=== PATIENT | male | born 1980 | race Caucasian/White ===

== ENCOUNTER 2017-11-04 17:29 | Observation (INO) ==
--- NOTE | 2017-11-04 17:46 | Emergency Department Note ---
Disposition Clinical Impression: Chest pain Qualifiers: Chest pain type: unspecified Qualified Code(s): R07.9 - Chest pain, unspecified Disposition: Admitted As Inpatient Condition: Undetermined Referrals: NONE,PCP [Primary Care Provider] - Forms: ED Satisfaction Letter Time of Disposition: 19:40 Chest Pain HPI - General Chief Complaint: ED Chest Pain Stated Complaint: CP Time Seen by Provider: 11/04/17 17:34 Source: patient Mode of arrival: ambulatory Limitations: no limitations Vital Signs Reviewed: Yes Nursing Notes Reviewed: Yes - History of Present Illness HPI Narrative: 37-year-old male arrives to the emergency department complaining of left-sided chest pain that radiates to his left shoulder and jaw. The patient states it was what he was out working in the [employer] Patient admits to some associated dyspnea as well as some nausea. Previous history of this once in the past but patient never received a stress test. No previous history of hypertension, hyperlipidemia and diabetes. The patient is a nonsmoker. The patient denies any other complaints at this time including hemoptysis, unilateral leg swelling , recent surgeries, recent immobilizations, history of DVT or PE. Severity scale (1-10): 3 - Related Data Home Medications Medication Instructions Recorded Confirmed No Known Home Drugs 11/03/15 11/04/17 Allergies Allergy/AdvReac Type Severity Reaction Status Date / Time No Known Allergies Allergy Verified 11/04/17 19:10 All systems ED: reviewed and negative except as stated. Constitutional: Denies: fever, chills, weakness ENT ED: Denies: congestion Cardiovascular: Reports: chest pain. Denies: dyspnea on exertion, edema, syncope Respiratory: Reports: dyspnea. Denies: cough Gastrointestinal: Reports: nausea, vomiting. Denies: abdominal pain, diarrhea, constipation, hematemesis, melena, hematochezia Genitourinary: Denies: urgency, dysuria Musculoskeletal: Denies: back pain Integumentary: Denies: rash Chest Pain PMH - Past Medical History Medical history: Reports: no medical history Surgical history: Reports: non-contributory Psychiatric history: Reports: no psych history - Social History Smoking Status: Never smoker Alcohol use: Reports: none Drug use: Reports: none Physical Exam - General Limitations: no limitations General appearance: alert, in no apparent distress - Head Head exam: atraumatic, normocephalic, normal inspection - Eye Eye exam: Present: normal appearance, PERRL, EOMI - ENT ENT exam: normal exam, normal oropharynx, mucous membranes moist - Neck Neck exam: Present: normal inspection, full ROM, trachea midline - Chest Chest inspection: Present: normal inspection, symmetric chest wall rise - Respiratory Respiratory exam: Present: normal lung sounds bilaterally - Cardiovascular Cardiovascular exam: Present: regular rate, normal rhythm, normal heart sounds - Abdominal Exam Abdominal exam: Present: soft, Non-Tender. Absent: tenderness, distention, guarding, rebound, rigidity - Extremities Exam Extremities exam: Present: normal inspection, full ROM. Absent: tenderness, pedal edema - Neurological Exam Neurological exam: Present: alert, oriented X3 - Skin Skin exam: Present: warm, dry, intact, normal color Course Vital Signs O2 Sat by Pulse Oximetry 98 11/04/17 17:37 Temperature 98.9 F 11/04/17 17:38 Pulse Rate 72 11/04/17 18:57 Respiratory Rate 14 11/04/17 18:57 Blood Pressure 127/91 11/04/17 18:57 O2 Sat by Pulse Oximetry 97 11/04/17 18:57 Oxygen Delivery Oxygen Delivery Room Air Chest Pain - MDM Narrative Medical decision making narrative: Patient's workup in the emergency department demonstrates no acute process. The patient's symptoms are very concerning for ACS. We will admit the patient to the hospital at this time as his chest pain was by nitroglycerin as well as the patient's concerning findings. The patient does have a low risk score when evaluating him using the heart score but given the patient's concerning findings the patient will be admitted at this time. Patient made aware and agrees to plan. The patient received nitroglycerin and aspirin in route to the hospital. No further questions or concerns noted by patient. Accepted by Dr. Fernandez. - Lab Data Lab results reviewed: Yes I reviewed the patient's lab results. Result diagrams: 11/04/17 17:44 11/04/17 17:44 Lab Results 11/04/17 11/04/17 11/04/17 Range/Units 17:44 17:44 17:44 WBC 9.3 (4.3-11.1) K/mcL RBC 5.10 (4.19-5.50) M/mcL Hgb 15.5 (12.9-16.9) g/dL Hct 44.9 (37.5-50.1) % MCV 88.0 (83.0-100.0) fL MCH 30.4 (28.0-33.3) pg MCHC 34.5 (31.6-35.5) g/dL RDW 12.4 (11.5-14.5) % Plt Count 250 (140-400) K/mcL MPV 9.7 (9.4-12.4) fL Immature Gran % 0.2 (0-4) % Seg Neutrophils % 56.5 % Lymphocytes % 32.3 % Monocytes % 8.6 % Eosinophils % 1.8 % Basophils % 0.6 % Neutrophils # 5.2 (1.6-8.9) K/mcL Lymphocytes # 3.0 (0.6-4.6) K/mcL Monocytes # 0.8 (0.0-1.3) K/mcL Eosinophils # 0.2 (0.0-0.6) K/mcL Basophils # 0.1 (0.0-0.2) K/mcL APTT 34.1 (26.0-36.0) Seconds Sodium 138 (136-145) mEq/L Potassium 4.9 (3.5-5.1) mEq/L Chloride 104 (98-107) mEq/L Carbon Dioxide 22 L (23-29) mEq/L BUN 21 H (6-20) mg/dL Creatinine 1.08 (0.70-1.30) mg/dL Est GFR ( Amer) > 60 (> 60) Est GFR (Non-Af Amer) > 60 (> 60) BUN/Creatinine Ratio 19 (6-26) Glucose 102 (70-105) mg/dL Calculated Osmolality 289 (280-300) Calcium 10.1 (8.6-10.3) mg/dL Troponin I < 0.03 (< 0.04) ng/mL - Radiology Data Radiology results reviewed: Yes I reviewed the patient's radiology results. Chest X-Ray 11/04/17 17:37 IMPRESSION: No acute cardiopulmonary findings. D/ / Rinku Dawson MD / Rinku Dawson MD Interpreting Provider: Rinku Dawson MD - EKG Data EKG attestation: Yes I reviewed and interpreted this EKG. EKG results narrative: Heart rate [address] depression noted, mild ST elevation noted in V1 that is identical to EKG of from 11/03/2015. J-point elevation noted in septolateral leads. Normal sinus rhythm.
[2017-11-04 18:09] LABS: Basophils # 0.1 K/mcL (0.0-0.2); Basophils % 0.6 %; Eosinophils # 0.2 K/mcL (0.0-0.6); Eosinophils % 1.8 %; Hematocrit 44.9 % (37.5-50.1); Hemoglobin 15.5 g/dL (12.9-16.9); Immature Granulocytes % 0.2 % (0-4); Lymphocytes % 32.3 %; Mean Corpuscular HGB Conc 34.5 g/dL (31.6-35.5); Mean Corpuscular Hemoglobin 30.4 pg (28.0-33.3); Mean Platelet Volume 9.7 fL (9.4-12.4); Monocytes # 0.8 K/mcL (0.0-1.3); Monocytes % 8.6 %; Neutrophils # 5.2 K/mcL (1.6-8.9); Platelet Count 250 K/mcL (140-400); Red Cell Distribution Width 12.4 % (11.5-14.5); Segmented Neutrophils % 56.5 %
--- NOTE | 2017-11-04 18:16 | Emergency Department Note ---
Disposition Clinical Impression: Chest pain Qualifiers: Chest pain type: unspecified Qualified Code(s): R07.9 - Chest pain, unspecified Disposition: Admitted As Inpatient Condition: Undetermined General Adult HPI - General Chief complaint: ED Chest Pain Stated complaint: CP Time Seen by Provider: 11/04/17 17:34 Source: patient Mode of arrival: ambulatory Limitations: no limitations - History of Present Illness Pain Scale: 3 - Related Data Home Medications Medication Instructions Recorded Confirmed No Known Home Drugs 11/03/15 11/04/17 Allergies Allergy/AdvReac Type Severity Reaction Status Date / Time No Known Allergies Allergy Verified 11/04/17 19:10 Constitutional: Denies: fever, chills, weakness ENT ED: Denies: congestion Cardiovascular: Reports: chest pain. Denies: dyspnea on exertion, edema, syncope Respiratory: Reports: dyspnea. Denies: cough Gastrointestinal: Reports: nausea, vomiting. Denies: abdominal pain, diarrhea, constipation, hematemesis, melena, hematochezia Genitourinary: Denies: urgency, dysuria Musculoskeletal: Denies: back pain Integumentary: Denies: rash Past Medical History - Past Medical History Medical history: Reports: no medical history Surgical history: Reports: non-contributory Psychiatric history: Reports: no psych history - Social History Smoking Status: Never smoker Smokeless Tobacco Status: Yes Alcohol use: Reports: none Drug use: Reports: none Physical Exam - General Limitations: no limitations General appearance: alert, in no apparent distress Course Vital Signs O2 Sat by Pulse Oximetry 98 11/04/17 17:37 Temperature 97.8 F 11/04/17 20:32 Pulse Rate 67 11/04/17 20:32 Respiratory Rate 14 11/04/17 20:32 Blood Pressure 127/74 11/04/17 20:32 O2 Sat by Pulse Oximetry 99 11/04/17 20:32 Oxygen Delivery Oxygen Delivery Room Air Medical Decision Making - Lab Data Result diagrams: 11/04/17 17:44 11/04/17 17:44 Lab Results 11/04/17 11/04/17 11/04/17 Range/Units 17:44 17:44 17:44 WBC 9.3 (4.3-11.1) K/mcL RBC 5.10 (4.19-5.50) M/mcL Hgb 15.5 (12.9-16.9) g/dL Hct 44.9 (37.5-50.1) % MCV 88.0 (83.0-100.0) fL MCH 30.4 (28.0-33.3) pg MCHC 34.5 (31.6-35.5) g/dL RDW 12.4 (11.5-14.5) % Plt Count 250 (140-400) K/mcL MPV 9.7 (9.4-12.4) fL Immature Gran % 0.2 (0-4) % Seg Neutrophils % 56.5 % Lymphocytes % 32.3 % Monocytes % 8.6 % Eosinophils % 1.8 % Basophils % 0.6 % Neutrophils # 5.2 (1.6-8.9) K/mcL Lymphocytes # 3.0 (0.6-4.6) K/mcL Monocytes # 0.8 (0.0-1.3) K/mcL Eosinophils # 0.2 (0.0-0.6) K/mcL Basophils # 0.1 (0.0-0.2) K/mcL APTT 34.1 (26.0-36.0) Seconds Sodium 138 (136-145) mEq/L Potassium 4.9 (3.5-5.1) mEq/L Chloride 104 (98-107) mEq/L Carbon Dioxide 22 L (23-29) mEq/L BUN 21 H (6-20) mg/dL Creatinine 1.08 (0.70-1.30) mg/dL Est GFR ( Amer) > 60 (> 60) Est GFR (Non-Af Amer) > 60 (> 60) BUN/Creatinine Ratio 19 (6-26) Glucose 102 (70-105) mg/dL Calculated Osmolality 289 (280-300) Calcium 10.1 (8.6-10.3) mg/dL Troponin I < 0.03 (< 0.04) ng/mL Attestation Statement - Attestation Attestation: I examined this patient and my medical decision-making was reviewed with the Resident Physician. I agree with the documented findings, disposition and treatment plan as described except to the extent set forth below. 37-year-old male presents emergency room for chest pain. 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 States he developed chest pain that radiated down the left arm associated with nausea diaphoresis and vomiting. Family history of coronary disease. EKG shows J-point elevation. Nitroglycerin and aspirin relieved his chest pain earlier. I feel patient needs to be admitted for ACS evaluation and observation. This was based on his story.
[2017-11-04 18:31] LABS: Troponin I < 0.03 ng/mL (< 0.04)
[2017-11-04 18:32] LABS: BUN/Creatinine Ratio 19 (6-26); Blood Urea Nitrogen 21 mg/dL (6-20); Calcium 10.1 mg/dL (8.6-10.3); Carbon Dioxide 22 mEq/L (23-29); Chloride 104 mEq/L (98-107); Glucose 102 mg/dL (70-105); Osmolality,Calculated 289 (280-300); Potassium 4.9 mEq/L (3.5-5.1); Sodium 138 mEq/L (136-145); eGFR For African Americans > 60 (> 60); eGFR For Non-African Americans > 60 (> 60)
[2017-11-05] MEDS ORDERED: Acetaminophen 325 MG TABLET PO PRN (00:13)
[2017-11-05] MEDS ORDERED: Naloxone 0.4 MG/ML INJ IVP PRN (00:13)
--- NOTE | 2017-11-05 00:33 | Internal Med History&Physical ---
Date of Encounter: 11/05/17 Time of Encounter: 22:00 Internal Medicine - H&P: HPI Chief complaint: Chest pain Admitted From: Home Plans for Post Hospital Care: Home History of present illness: Mr. Enriquez is a 37 year old male Patient reported having chest pain at around 1 PM today. The pain was in the center of his chest and radiated to his left shoulder and jaw. 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 He tried taking some time away from his work duties, but his pain kept getting worse after about an hour of shortness of breath and diaphoresis he decided to go to the emergency room. He is given nitroglycerin which made the pain better. He has a previous history of an episode like this in the past, but he did not get any workup for. He has family history of heart attacks in his father who also received a stent. Patient says that he thinks his dad was about mid 40s at that time. Currently his pain is about 1 out of 10 and is feeling much better. He denies nausea, vomiting, no abdominal pain, diarrhea, constipation. Past Med Surg Social Fam HX - Past Medical History Medical history: no medical history Psychiatric history: no psych history - Past Surgical History Surgical History: non-contributory - Social History Smoking Status: Never smoker Smokeless Tobacco Status: Yes Alcohol use: none Drug use: none - Family History Mother Hx Family Cardiac Disorders: No Hx Family Respiratory Disorders: No Hx Family Cancer: No Hx Family GI Disorders: No Hx Family Genitourinary Disorders: No Hx Family Endocrine Disorder: No Hx Family Musculoskeletal Disorders: No Hx Family Neuromuscular Disorders: No Hx Family Neurologic Disorders: No Hx Family HEENT Disorders: No Hx Family Autoimmune Disorders: No Hx Family Reproductive Disorders: No Hx Family Psychosocial Disorders: No Hx Family Medical Disorders: No Father Living Status: Still Living Hx Family Cardiac Disorders: Yes (mi, open heart sx, stent placements) Hx Family Respiratory Disorders: Yes (copd) Hx Family Cancer: No Hx Family GI Disorders: No Hx Family Genitourinary Disorders: No Hx Family Endocrine Disorder: No Hx Family Musculoskeletal Disorders: No Hx Family Neuromuscular Disorders: No Hx Family Neurologic Disorders: No Hx Family HEENT Disorders: No Hx Family Autoimmune Disorders: No Hx Family Reproductive Disorders: No Hx Family Psychosocial Disorders: No Hx Family Medical Disorders: No Internal Medicine - H&P: Meds No Known Home Drugs 11/03/15 [History] 3 Allergy/AdvReac Type Severity Reaction Status Date / Time No Known Allergies Allergy Verified 11/04/17 19:10 All Systems PM: A 10-system review of systems was performed and is negative for pertinent findings except as documented above in the HPI. - Constitutional Vitals: Temp Pulse Resp BP Pulse Ox 98.0 F 72 16 115/78 100 11/04/17 22:53 11/04/17 22:53 11/04/17 22:53 11/04/17 22:53 11/04/17 22:53 General appearance: Present: pleasant, no acute distress - Head Head exam: Present: normal inspection - Eye Eye exam: Present: EOMI, normal appearance - Neck Neck exam general surgery: Present: full ROM. Absent: tenderness - Respiratory Respiratory exam: Present: chest wall tenderness, CTAB. Absent: decreased breath sounds, respiratory distress, wheezes Additional comments: Tenderness with palpation of the left chest, and with palpation of left tricep. - Cardiovascular Cardiovascular exam: Present: RRR. Absent: diastolic murmur, systolic murmur - GI/Abdominal GI/Abdominal exam: Present: normal bowel sounds. Absent: firm, guarding, tenderness - Extremities Exam Extremities exam: Present: full ROM, tenderness, warm, radial pulses palpable and symmetrical. Absent: calf tenderness, pedal edema Additional comments: left tripcep tenderness. - Neurological Exam Neurological exam: Present: oriented X3, strengths equal and symetr throughout. Absent: motor sensory deficit, facial droop, speech deficit - Skin Skin exam: Present: dry, warm. Absent: rash Internal Med - H&P Results - Labs CBC & Chem 7: 11/05/17 00:30 11/05/17 00:30 - Assessment and plan (1) Chest pain Current Visit: Yes Status: Acute Assessment and plan: Improved with nitroglycerin, patient's current pain is 1 out of 10. In the ER EKG had no ST changes from previous EKG. His chest pain is reproducible with palpation of the left chest. Continue to monitor her troponins Cardiology consult in the morning Patient may require stress test Qualifiers: Chest pain type: unspecified Qualified Code(s): R07.9 - Chest pain, unspecified (2) DVT prophylaxis Current Visit: No Status: Acute Assessment and plan: Heparin subcutaneous - Time Spent With Patient Total time spent is greater than 50% in coordination of care (as documented) at patient's floor/unit and/or counseling patient: Greater than 35 minutes
[2017-11-05 01:30] LABS: Hematocrit 42.3 % (37.5-50.1); Hemoglobin 14.2 g/dL (12.9-16.9); Mean Corpuscular HGB Conc 33.6 g/dL (31.6-35.5); Mean Corpuscular Hemoglobin 29.5 pg (28.0-33.3); Mean Corpuscular Volume 87.8 fL (83.0-100.0); Mean Platelet Volume 9.7 fL (9.4-12.4); Platelet Count 231 K/mcL (140-400); Red Blood Count 4.82 M/mcL (4.19-5.50); Red Cell Distribution Width 12.8 % (11.5-14.5)
[2017-11-05 01:55] LABS: BUN/Creatinine Ratio 22 (6-26); Blood Urea Nitrogen 22 mg/dL (6-20); Calcium 9.5 mg/dL (8.6-10.3); Carbon Dioxide 26 mEq/L (23-29); Chloride 106 mEq/L (98-107); Glucose 95 mg/dL (70-105); Osmolality,Calculated 293 (280-300); Sodium 140 mEq/L (136-145); eGFR For African Americans > 60 (> 60); eGFR For Non-African Americans > 60 (> 60)
[2017-11-05] MEDS ORDERED: *HR* Heparin 5,000 UNIT/ML VIAL SQ SCH (06:00)
[2017-11-05] MEDS ORDERED: Regadenoson 0.4 MG/5 ML SYRINGE IVP ONE (08:52)
[2017-11-05 11:57] VITALS: BP 133/76
--- NOTE | 2017-11-05 13:06 | Discharge Summary ---
- NOTES TO OUTPATIENT PROVIDER Notes to Outpatient Provider: Pt was admitted for left chest pain with radiation to left axilla, onset while working in the heat and direct sun. Was not relieved with rest or nitroglycerin. Pt does have some tenderness to palpation in axilla, however, pt states that it is not the same pain. Nuclear stress was negative with a gated EF of 57% and troponins were negative x 3. Recommend follow up with PCP soon and return to work next week. Orders not resulted at time of discharge: Pending orders 11/05/17 06:00 EKG [ECG 12 lead ECG] [ECG] AM 0600 11/05/17 07:50 NM lidnsay perf SPECT multi [NM] Routine Date of Encounter: 11/05/17 Time of Encounter: 10:50 - Discharge Diagnosis (1) Chest pain Priority: Primary Status: Acute Assessment and Plan: Pt denies chest pain today. Stress test was negative with a pEF, troponins negative. Pt does have some mild tenderness to palpation in left axilla, however , he states that it is not the same chest pain that he was having which propted his visit. He is pain free today and denies SOB, diaphoresis, nausea or vomiting. 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 Recommend that pt take 2 days off from work, we discussed adequate hydration and frequent breaks at work when it is hot outside. Recommend that pt follow up with PCP for continued testing if chest pain recurs. Qualifiers: Chest pain type: unspecified Qualified Code(s): R07.9 - Chest pain, unspecified (2) DVT prophylaxis Priority: Secondary Status: Acute Assessment and Plan: Pt has been ambulatory. Heparin SQ BID. Hospital course: Mr. Enriquez is a 37 year old male with no significant past medical history on no home medications. Patient reports working out in the heat for any extended period of time continue admission when left-sided chest pain began. There is radiation to left axilla. Patient denies any shortness of breath, nausea, vomiting. He reports profuse diaphoresis, though he was outside when it was greater than 90 degrees. Patient reports sitting in the shade, drinking fluids , sitting in the air conditioning inside of a truck, no relief to chest pain. Patient states that pain resolved on its own no or no aggravating or relieving factors. He has been chest pain-free since. His labs are stable and within normal limits. He is a nonsmoker. Few risk factors. Nuclear stress test was negative for ischemia or infarct, patient preserved EF. Troponins were negative. He does have some mild tenderness to palpation in the left axilla, that this is not the same chest pain he had which prompted his visit to the hospital. Encourage patient to take a few days off from work, follow-up with primary care , though he is at work increase his fluid and electrolyte replenishment and take frequent breaks for hydration. Patient is stable and appropriate for discharge. Discharge discussed with: patient - Time Spent with Patient Total time spent providing and/or coordinating discharge services: Less than 30 minutes - Discharge Medications Home Medications: No Known Home Drugs 11/03/15 [History] Allergies/Adverse Reactions: 3 Allergy/AdvReac Type Severity Reaction Status Date / Time No Known Allergies Allergy Verified 11/04/17 19:10 Date of admission: 11/04/17 19:48 Primary care physician: PCP NONE Discharging clinician: Latasha Rosenberg Anticipated date of discharge: 11/05/17 - Constitutional Vitals: Temp Pulse Resp BP Pulse Ox 97.6 F 64 16 133/76 99 11/05/17 11:56 11/05/17 11:56 11/05/17 11:56 11/05/17 11:56 11/05/17 11:56 General appearance: Present: cooperative, A&O X 3, pleasant, no acute distress, answers questions appropriately - Head Head exam: Present: atraumatic, normal inspection, normocephalic - Eye Eye exam: Present: normal appearance, conjuntiva pink, sclera anicteric - Neck Neck exam general surgery: Present: supple, trachea midline. Absent: lymphadenopathy, tenderness - Respiratory Respiratory exam: Present: CTAB. Absent: accessory muscle use, chest wall tenderness, rales, respiratory distress, rhonchi, wheezes - Cardiovascular Cardiovascular exam: Present: RRR, +S1, +S2. Absent: diastolic murmur, gallop, rubs, systolic murmur - GI/Abdominal GI/Abdominal exam: Present: normal bowel sounds, soft, no peritoneal signs. Absent: distended, hepatomegaly, tenderness - Extremities Exam Extremities exam: Present: normal capillary refill, normal inspection, warm, radial pulses palpable and symmetrical. Absent: calf tenderness, cyanotic, pedal edema, tenderness - Neurological Exam Neurological exam: Present: alert, oriented X3, no focal deficits. Absent: facial droop, speech deficit - Skin Skin exam: Present: dry, intact, normal color, warm. Absent: rash - Patient Status Disposition: Home, Self-Care Condition: Good Functional capacity at discharge: independent ambulation Overall status at discharge: patient is back to baseline - Discharge Instructions Follow Up With: NONE,PCP [Primary Care Provider] - Additional Instructions: Please follow up with your primary care provider in the next 3-5 days. Return to the emergency department as needed for any other problems or concerns , or if your symptoms return or worsen. Make sure when you are work outside, they are staying adequately hydrated. Take breaks frequently for hydration and rest. Resume your normal activities and diet as tolerated. - Diet and Activity Activity: increase activity as tolerated, return to work once cleared by your PCP/specialist Diet: advance to your usual diet
--- NOTE | 2017-11-05 19:56 | Electrocardiograph Report ---
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
== END 2017-11-05 14:40 | disposition home or self-care (01) ==
LOC: 3BNU 17:29 → EMEROO 17:29 → 3BNU 20:30
PROVIDERS: ADMIT Internal Medicine Nephrology; ATTEND Internal Medicine Nephrology